=== PATIENT | female | born 1960 | race Caucasian/White ===

== ENCOUNTER 2018-10-11 12:52 | Inpatient (IN) | payer BC, OTHER ==
[~2018-10-11] VITALS: Ht 160 cm; Wt 78.9 kg
[~2018-10-11 12:52] MED LIST: ASA81 MG PO; FIORICET1 EA PO; METOPROLOL TART50 MG PO; OMEPRAZOLE20 MG PO; PANTOPRAZOLE SO40 MG PO; PROAIR HFA INH8.5 GM INH; TIZANIDINE HCL4 MG PO; TRICOR48 MG PO; Z.0.COZAAR50 MG PO; Z.0.GLUCOPHAGE500 MG PO; Z.0.HYDROCHLOROTH12. PO; Z.0.ZOLOFT25 MG PO; metoprolol
--- OUTSIDE RECORDS SUMMARY | 2018-10-11 12:56 | XMS REPORT | Continuity of Care Document ---
Author Author [facility] Interface Address Unknown Phone Unavailable Problems Problem Status Onset Date Classification Date Reported Comments Source Acute sinusitis 09/12/2016 Diagnosis 09/12/2016 [facility] Viral disease 09/12/2016 Diagnosis 09/12/2016 [facility] Coxsackie virus disease 08/24/2016 Diagnosis 09/12/2016 [facility] Coxsackie Virus Disease Problem 09/12/2016 [facility] Viral Disease Problem 09/12/2016 [facility] Acute Sinusitis Problem 09/12/2016 [facility] Medications Medication Details Route Status Patient Instructions Ordering Provider Order Date Source Fenofibrate 48 MG Oral Tablet fenofibrate nanocrystallized 48 mg tablet Active [facility] gabapentin 300 MG Oral Capsule gabapentin 300 mg capsule Active [facility] Hydrochlorothiazide 25 MG Oral Tablet hydrochlorothiazide 25 mg tablet Active [facility] Hydroxyzine Hydrochloride 25 MG Oral Tablet hydroxyzine HCl 25 mg tablet Active [facility] Losartan Potassium 50 MG Oral Tablet losartan 50 mg tablet Active [facility] Metformin hydrochloride 1000 MG Oral Tablet metformin 1,000 mg tablet Active [facility] Metoprolol Tartrate 50 MG Oral Tablet metoprolol tartrate 50 mg tablet Active [facility] Ondansetron 8 MG Disintegrating Oral Tablet ondansetron 8 mg disintegrating tablet Active [facility] Sertraline 50 MG Oral Tablet sertraline 50 mg tablet Active [facility] tizanidine 4 MG Oral Tablet tizanidine 4 mg tablet Active [facility] Triamcinolone Acetonide 0.001 MG/MG Topical Ointment triamcinolone acetonide 0.1 % topical ointment Active [facility] Amoxicillin 875 MG / Clavulanate 125 MG Oral Tablet [Augmentin] Augmentin 875 mg-125 mg tablet Take 1 tablet every 12 hours by oral route with meals for 10 days. Active [facility] benzonatate 200 MG Oral Capsule benzonatate 200 mg capsule Active [facility] Ciprofloxacin 3 MG/ML / Dexamethasone 1 MG/ML Otic Suspension [Ciprodex] Ciprodex 0.3 %-0.1 % ear drops,suspension Active [facility] Fluticasone propionate 0.05 MG/ACTUAT Metered Dose Nasal [place] fluticasone 50 mcg/actuation nasal spray,suspension Active [facility] Ondansetron 4 MG Oral Tablet ondansetron HCl 4 mg tablet Active [facility] benzonatate 100 MG Oral Capsule [Tessalon Perles] Tessalon Perles 100 mg capsule Take 1 capsule 3 times a day by oral route as needed for cough. Active [facility] Allergies, Adverse Reactions, Alerts Substance Category Reaction Severity Reaction type Status Date Reported Comments Source Egg Derived Allergy to substance 08/24/2016 [facility] Fish Derived Allergy to substance 08/24/2016 [facility] Soma Allergy to substance 08/24/2016 [facility] Sulfa (Sulfonamide Antibiotics) Allergy to substance 08/24/2016 [facility] Immunizations Immunization Date Given Site Status Last Updated Comments Source Results Order Name Results Value Reference Range Date Interpretation Comments Source Influenza A negative 09/12/2016 [facility] Influenza B negative 09/12/2016 [facility] RESULT negative 09/12/2016 [facility] SWAB LOCATION Left and Right tonsillar pillars 09/12/2016 [facility] Vital Signs Vital Sign Value Date Comments Source Diastolic (mm Hg) 82 09/12/2016 [facility] Height 63 09/12/2016 [facility] Systolic (mm Hg) 124 09/12/2016 [facility] Weight 174 09/12/2016 [facility] Diastolic (mm Hg) 80 08/24/2016 [facility] Height 63 08/24/2016 [facility] Systolic (mm Hg) 126 08/24/2016 [facility] Weight 174 08/24/2016 [facility] Encounters Location Location Details Encounter Type Encounter Number Reason For Visit Attending Provider ADM Date DC Date Status Source [place] [facility] - [id number] Noel: [address] [place] [address], Ph. [id number] Janice Brock 08/24/2016 [facility] [place] [facility] - [id number] Noel: [address] [place] [address], Ph. [id number] Janice Delmy 08/24/2016 [facility] [place] [facility] - [id number] Cira Agudelo, SOLUTION STRATEGIST: [address] [facility], [place] [address], Ph. [id number] Cira Agudelo 09/12/2016 [facility] Procedures Procedure Code Date Perfomer Comments Source Appendectomy [facility] Cholecystectomy [facility] Hysterectomy [facility] Tonsillectomy [facility]
--- OUTSIDE RECORDS SUMMARY | 2018-10-11 12:57 | XMS REPORT | Encounter Summary ---
Author Organization Unknown Address [address] [place] [address] Phone [phone] Reason for Visit Medical Complaint Instructions 1. Acute sinusitis Augmentin 875 mg-125 mg tablet Tessalon Perles 100 mg capsule sinusitis: care instructions 2. Viral disease rapid flu (A+B) viral infections: care instructions rapid strep group A, throat Discussion Note: None recorded. Plan of Care Patient Instructions Try warm salt water gargles, throat lozanges, soups ortea with honey and/or lemon juice to soothe the throat.Please drink plenty of fluids, rest, good hand washing, cover your mouth while coughing and sneezing. Take ibuprofen or tylenol every 6 hours as needed for fever and aches.Try flonase nasal spray, 2sprays to each nostril once a day for nasal congestion. Consider using a saline sinus wash or NetiPot for sinus cleansing.Please read all the side effects of the medications, if you develop any side effects immediately stop the medication and please contact your PCP/[facility] or [facility] or call 911. Follow up with PCP/UC/ER or seek care if symptomsget worseor no improvement in 3 to 4 days. Patient verbalizes understanding and agrees to the plan. Reminders Provider Appointments None recorded. Lab Rapid Flu (A+B) 09/12/2016 [facility] Rapid Strep Group a, Throat 09/12/2016 [facility] Referral None recorded. Procedures None recorded. Surgeries None recorded. Imaging None recorded. Medications Name Start Date Augmentin 875 mg-125 mg tablet Take 1 tablet every 12 hours by oral route with meals for 10 days. benzonatate 200 mg capsule Ciprodex 0.3 %-0.1 % ear drops,suspension fenofibrate nanocrystallized 48 mg tablet fluticasone 50 mcg/actuation nasal spray,suspension gabapentin 300 mg capsule hydrochlorothiazide 25 mg tablet hydroxyzine HCl 25 mg tablet losartan 50 mg tablet metformin 1,000 mg tablet metoprolol tartrate 50 mg tablet ondansetron 8 mg disintegrating tablet ondansetron HCl 4 mg tablet sertraline 50 mg tablet Tessalon Perles 100 mg capsule Take 1 capsule 3 times a day by oral route as needed for cough. tizanidine 4 mg tablet triamcinolone acetonide 0.1 % topical ointment Medications Administered None recorded. Vitals Height Weight BMI Blood Pressure 5 ft 3 in 174 lbs 30.8 124/82 Lab Results Date Name Result Description Value Range Status Rapid Flu (A+B) Influenza a negative Influenza B negative Rapid Strep Group a, Throat Result negative Swab Location Left and Right tonsillar pillars Allergies Name Reaction Severity Onset Egg Derived Fish Derived Soma Hives Sulfa (Sulfonamide Antibiotics) Hives Problems Name Status Onset Date Source Coxsackie Virus Disease Active Encounter Viral Disease Active Encounter Acute Sinusitis Active Encounter Procedures Date Name Performed by Appendectomy Information not available Cholecystectomy Information not available Hysterectomy Information not available Tonsillectomy Information not available Vaccine List None recorded. Social History Smoking Status Current Some Day Smoker Past Encounters 09/12/2016 Acute Sinusitis; Viral Disease Cira Agudelo, KIMBERLYN: [address] [place] [address], Ph. 08/24/2016 Coxsackie Virus Disease Janice Delmy, BIOLOGICAL SCIENCES INSTRUCTOR: [address] [place] [address], Ph. History of Present Illness Inwam-Rajwywstai-Jalkbcj Reported By: Patient HPI: Location: head/sinuses. Quality: sore throat, colored phlegm, nasal/sinus congestion, dry cough. Duration: 2 weeksdays. Severity: moderate. Onset/Timing: sudden. Context: no sick contacts, no foreign travel, non-smoker. Modifying factors: OTC medication. Associated Symptoms: no shortness of breath, no wheezing, no change in number of pillows needed to sleep at night, no sweats, no significant weight gain, no significant weight loss, no morning cough, no vomiting, no diarrhea, no rash, no nausea, green sputum, sore throat Notes: Pt also reports low grade fever, sore throat, chills and body aches x 2 days. Review of Systems Basic Reported By: Patient Constitutional: Constitutional: fever Eyes: Eyes: no eye complaints Ioan-Khbh-Ylzad-Throat: Ears: no ear complaints. Nose: nose/sinus problems. Mouth/Throat: no bleeding gums, no mouth complaints, no teeth problems, sore throat Cardiovascular: Cardiovascular: no chest pain, no shortness of breath, no known heart murmur Respiratory: Respiratory: no wheezing, no shortness of breath, cough Gastrointestinal: Gastrointestinal: no abdominal pain, no vomiting / diarrhea Genitourinary: Genitourinary: no urinary complaints, no discharge Musculoskeletal: Musculoskeletal: no muscle weakness, no arthralgias/joint pain, no back pain, muscle aches Skin: Skin: no abnormal / changing mole, no jaundice, no rashes Neurologic: Neurologic: no loss of consciousness, no weakness, no numbness, no seizures, no dizziness, headache Physical Exam Adult Basic, Adult Female Complete Reported By: Patient Constitutional: General Appearance: healthy-appearing, well-nourished, well-developed. Level of Distress: NAD. Ambulation: ambulating normally Psychiatric: Mental Status: active and alert. Orientation: to time, to place, to person Eyes: Lids and Conjunctivae: non-injected, no discharge, no pallor. Pupils: PERRLA. EOM: EOMI. Lens: clear. Sclerae: non-icteric Ggq-Rwxy-Wkxze-Throat: Ears: no lesions on external ear, no outer ear tenderness, EACs clear, TMs clear, middle ear fluid. Hearing: no hearing loss. Nose: no lesions on external nose, nares patent, no septal deviation, nasal passages clear, sinus tenderness, nasal discharge--purulent, post nasal drip; red swollen nasal mucosa. Lips, Teeth, and Gums: no mouth or lip ulcers. Oropharynx: moist mucous membranes, no exudates, erythema, tonsils absent Neck: Neck: supple. Lymph Nodes: no cervical LAD Lungs: Respiratory effort: no dyspnea, no tachypnea. Auscultation: breath sounds normal Cardiovascular: Heart Auscultation: RRR, no murmurs Neurologic: Gait and Station: normal gait Skin: Inspection and palpation: no rash
--- OUTSIDE RECORDS SUMMARY | 2018-10-11 12:57 | XMS REPORT | Encounter Summary ---
Author Organization Unknown Address [address] [place] [address] Phone [phone] Reason for Visit Medical Complaint; hand, mouth, feet rash x2 days Instructions 1. Coxsackie virus disease triamcinolone acetonide 0.1 % topical ointment hydroxyzine HCl 25 mg tablet Discussion Note: None recorded. Patient educational handouts: No information available. Plan of Care Patient Instructions Instruct pt that this is a virus may take 7-10 days to recover. Ok to take tynenol/ibuprofen for pain/fever. Increase fluid intake. Avoid contact with other members at home until rash and fever have resolve. If noted fever increase worsening or unable to swallow anything down, seek ER. Work note given for pt to RTC on 08/29/16 if afebrile and rash free. Reminders Provider Appointments None recorded. Lab None recorded. Referral None recorded. Procedures None recorded. Surgeries None recorded. Imaging None recorded. Medications Name Start Date fenofibrate nanocrystallized 48 mg tablet gabapentin 300 mg capsule hydrochlorothiazide 25 mg tablet hydroxyzine HCl 25 mg tablet Take 1 tablet 3 times a day by oral route as needed for itching. losartan 50 mg tablet metformin 1,000 mg tablet metoprolol tartrate 50 mg tablet ondansetron 8 mg disintegrating tablet sertraline 50 mg tablet tizanidine 4 mg tablet triamcinolone acetonide 0.1 % topical ointment APPLY A THIN LAYER TO THE AFFECTED AREA(S) BY TOPICAL ROUTE 2 TIMES PER DAY x 10 days Medications Administered None recorded. Vitals Height Weight BMI Blood Pressure 5 ft 3 in 174 lbs 30.8 126/80 Lab Results None recorded. Allergies Name Reaction Severity Onset Egg Derived Fish Derived Soma Sulfa (Sulfonamide Antibiotics) Problems Name Status Onset Date Source Coxsackie Virus Disease Active Encounter Procedures Date Name Performed by Appendectomy Information not available Cholecystectomy Information not available Hysterectomy Information not available Tonsillectomy Information not available Vaccine List None recorded. Social History Smoking Status Never Smoker Past Encounters 08/24/2016 Coxsackie Virus Disease Janice Brock, ACTIVE DIRECTORY ENGINEER: [address] [facility], [place] [address], Ph. History of Present Illness Jgtn-Wrmcank-Bbdwq-Skin Lesion-Bite 1 Reported By: Patient HPI: Location: hands, feet; mouth. Quality: multiple. Severity: worsening. Duration: has noted for <1 week. Onset/Timing: abrupt onset. Context: no new detergents or skin products, no one else with similar rash, no sting or bite. Aggravating factors: nothing makes it worse. Alleviating factors: nothing gives relief. Associated Symptoms: no fever, no cold symptoms, no nausea, no vomiting, no diarrhea, no urinary symptoms Review of Systems Basic Reported By: Patient Constitutional: Constitutional: no fever Eyes: Eyes: no eye complaints Rphp-Kwtf-Yyfrw-Throat: Ears: no ear complaints. Nose: no nose/sinus problems. Mouth/Throat: no sore throat, no bleeding gums, no mouth complaints, no teeth problems Cardiovascular: Cardiovascular: no chest pain, no shortness of breath, no known heart murmur Respiratory: Respiratory: no cough, no wheezing, no shortness of breath Gastrointestinal: Gastrointestinal: no abdominal pain, no vomiting / diarrhea Genitourinary: Genitourinary: no urinary complaints, no discharge Musculoskeletal: Musculoskeletal: no muscle aches, no muscle weakness, no arthralgias/joint pain, no back pain Skin: Skin: no abnormal / changing mole, no jaundice, rash Neurologic: Neurologic: no loss of consciousness, no weakness, no numbness, no seizures, no dizziness, no headaches Physical Exam Adult Basic, Adult Female Complete Constitutional: General Appearance: healthy-appearing, well-nourished, well-developed. Level of Distress: NAD. Ambulation: ambulating normally Psychiatric: Mental Status: active and alert. Orientation: to time, to place, to person Eyes: Lids and Conjunctivae: non-injected, no discharge, no pallor. Pupils: PERRLA. Corneas: grossly intact. EOM: EOMI. Lens: clear. Sclerae: non-icteric. Vision: acuity grossly intact Key-Fyyv-Yuvvp-Throat: Ears: no lesions on external ear, no outer ear tenderness, EACs clear, TMs clear. Hearing: no hearing loss. Nose: no lesions on external nose, nares patent, no septal deviation, nasal passages clear, no sinus tenderness, no nasal discharge. Lips, Teeth, and Gums: no mouth or lip ulcers, no bleeding gums, normal dentition. Oropharynx: ; ulcerated pink lesion to oropharynx Neck: Neck: supple, trachea midline, no masses, FROM. Lymph Nodes: no cervical LAD, no supraclavicular LAD. Thyroid: no enlargement, non-tender, no nodules Lungs: Respiratory effort: no dyspnea, no tachypnea, no use of accessory muscles, no intercostal retractions. Auscultation: breath sounds normal Cardiovascular: Heart Auscultation: RRR, no murmurs. Neck vessels: no carotid bruits Skin: Inspection and palpation: rash
[2018-10-11] MEDS ORDERED: SODIUM CHLORIDE 0.9% 1000ML 1,000 ML IV STA (13:18)
[2018-10-11 13:46] LABS: BASOPHILS % 0.4 % (0.0-1.0); EOSINOPHILS # (AUTO) 0.2 (0.0-0.4); EOSINOPHILS % 1.4 % (0.0-6.0); HEMOGLOBIN 14.3 g/dL (12.0-16.0); LYMPHOCYTES # (AUTO) 2.7 (1.0-3.2); LYMPHOCYTES % 23.7 % (18.0-39.1); MEAN CORPUSCULAR HEMOGLOBIN 29.5 pg (28-32); MEAN CORPUSCULAR HGB CONC 35.8 g/dL (31-35); MEAN CORPUSCULAR VOLUME 82.6 fL (81-99); MONOCYTES % 9.1 % (4.4-11.3); NEUTROPHILS # (AUTO) 7.3 (2.1-6.9); NEUTROPHILS % 64.7 % (38.7-80.0); PLATELET COUNT 512 x10e3/uL (140-360); RED BLOOD COUNT 4.84 x10e6/uL (3.6-5.1)
[2018-10-11 13:54] LABS: CLARITY,URINE SL CLOUDY (CLEAR); COLOR,URINE YELLOW (YELLOW); LEUKOCYTE ESTERASE ,URINE NEGATIVE (NEGATIVE)
[2018-10-11 13:55] LABS: BILIRUBIN,URINE 1+ (NEGATIVE); KETONES,URINE NEGATIVE (NEGATIVE); NITRITE,URINE NEGATIVE (NEGATIVE); PROTEIN,URINE DIPSTICK TRACE (NEGATIVE); URINE UROBILINOGEN 0.2 mg/dL (0.2 - 1)
[2018-10-11 14:06] LABS: ALANINE AMINOTRANSFERASE 76 IU/L (0-55); ALBUMIN 4.7 g/dL (3.5-5.0); ALBUMIN/GLOBULIN RATIO 1.3 (0.8-2.0); ALKALINE PHOSPHATASE 98 IU/L (40-150); AMYLASE 55 U/L (25-125); ANION GAP 17.6 mmol/L (8-16); BLOOD UREA NITROGEN 22 mg/dL (7-26); BUN/CREATININE RATIO 24 (6-25); CALCIUM 10.9 mg/dL (8.4-10.2); CARBON DIOXIDE 28 mmol/L (22-29); CHLORIDE 91 mmol/L (98-107); CREATININE, SERUM 0.93 mg/dL (0.57-1.11); EST GLOMERULAR FILTRATION RATE > 60 ML/MIN (60-); GLUCOSE 247 mg/dL (74-118); LIPASE 61 U/L (8-78); MAGNESIUM 1.9 MG/DL (1.3-2.1); SODIUM 134 mmol/L (136-145)
[2018-10-11 14:07] LABS: POTASSIUM 2.6 mmol/L (3.5-5.1)
[2018-10-11] MEDS ORDERED: POTASSIUM CHLORIDE 20 MEQ TAB CR PO ONE (14:08)
[2018-10-11 14:10] LABS: WBC,URINE (MAN) 0-5 /HPF (0-5)
[2018-10-11 14:11] LABS: AMORPHOUS SEDIMENT,URINE RARE (FEW); BACTERIA,URINE RARE /HPF; EPITHELIAL CELLS,URINE FEW /LPF; MUCUS,URINE RARE (RARE); RBC,URINE 0-5 /HPF (0-5)
[2018-10-11] MEDS ORDERED: POTASSIUM CHLORIDE 20MEQ/100ML 200 ML IV ONE (14:15)
[2018-10-11 14:19] LABS: B-TYPE NATRIURETIC PEPTIDE2 < 10.0 pg/mL (0-100)
--- NOTE | 2018-10-11 15:02 | Diagnostic Imaging Report ---
EXAM: XR CHEST 1 VIEW DATE: 10/11/2018 1:18 PM INDICATION: Fever COMPARISON: 12/11/2014, no report available FINDINGS: Lines and Tubes: None Heart and Mediastinum: No acute cardiomediastinal findings. Lungs and Pleura: No significant pleural effusion, pneumothorax, or focal consolidation. Bones and Soft Tissues: No acute findings. IMPRESSION: 1. No acute cardiopulmonary findings. Signed by: Dr. Jordan Medellin MD on 10/11/2018 2:58 PM
[2018-10-11] MEDS ORDERED: MORPHINE SULFATE 2 MG/ML SYR IV ONE ×2 (15:58→22:00)
[2018-10-11] MEDS ORDERED: ONDANSETRON HCL INJ 2 MG/ML VIAL IV ONE ×2 (15:58→22:00)
[2018-10-11] MEDS ORDERED: SODIUM CHLORIDE 0.9% 1000ML 1,000 ML ONE (16:07)
[2018-10-11] MEDS ORDERED: SODIUM CHLORIDE 0.9% 1000ML 1,000 ML IV SCH (16:15)
[2018-10-11] MEDS ORDERED: PIPER-TAZ 3.375 GM 50 ML IV ONE ×2 (16:15→22:00)
--- OUTSIDE RECORDS SUMMARY | 2018-10-11 17:49 | XMS REPORT ---
Author [facility] Address Unknown Phone Unavailable Care Team Providers Care Statistics Intern Name Role Phone Afia LOPEZ Unavailable Unavailable Problems This patient has no known problems. Allergies, Adverse Reactions, Alerts This patient has no known allergies or adverse reactions. Medications This patient has no known medications. Results Test Description Test Time Test Comments Text Results Atomic Results Result Comments CHEST SINGLE (NOT PORTABLE) 2018-10-11 14:58:00 [place] [address] Patient Name: CHARLEEN PADILLA MR #: [id number] : 1960 Age/Sex: 57/F Req #: [id number] Adm Physician: Ordered by: ISAAC SANCHEZ PRODUCT HANDLER Report #: [id number] Location: ER Room/Bed: Procedure: [id number] DX/CHEST SINGLE (NOT PORTABLE) Exam Date: Exam Time: REPORT STATUS: Signed EXAM: XR CHEST 1 VIEW DATE: 10/11/2018 1:18 PM INDICATION: Fever COMPARISON: 12/11/2014, no report available FINDINGS: Lines and Tubes: None Heart and Mediastinum: No acute cardiomediastinal findings. Lungs and Pleura: No significant pleural effusion, pneumothorax, or focal consolidation. Bones and Soft Tissues: No acute findings. IMPRESSION: 1. No acute cardiopulmonary findings. Signed by: Dr. Jordan Medellin MD on 10/11/2018 2:58 PM Dictated By: JORDAN MEDELLIN MD [id number] Transcribed By: DEVAUGHN on 10/11/18 145 COPY TO: ISAAC SANCHEZ NP
[2018-10-11] MEDS: ALBUTEROL/IPRATROPIUM 3 ML NEB NEB SCH ×2 (19:00→21:45)
--- NOTE | 2018-10-11 21:03 | Diagnostic Imaging Report ---
EXAM: CT Abdomen and Pelvis WITH contrast INDICATION: ^abdominal pain ^[id number] ^4 ^Y COMPARISON: Chest x-ray dated 10/11/2018 TECHNIQUE: Abdomen and pelvis were scanned utilizing a multidetector helical scanner from the lung base to the pubic symphysis after administration of IV contrast. Coronal and sagittal reformations were obtained. Dose modulation, iterative reconstruction, and/or weight based adjustment of the mA/kV was utilized to reduce the radiation dose to as low as reasonably achievable. Routine protocol was performed. Scan was performed when during portal venous phase. IV CONTRAST: 100 mL of Isovue-370 ORAL CONTRAST: Water COMPLICATIONS: None RADIATION DOSE: Total DLP: 485.78 mGy*cm Estimated effective dose: (DLP x 0.015 x size factor) mSv CTDIvol has been reviewed. It is below the limits set by the Radiation Protocol Committee (RPC). FINDINGS: LINES and TUBES: None. LOWER THORAX: Multiple bilateral nodules versus patchy opacities, measuring up to 1.8 cm. HEPATOBILIARY: Hepatomegaly. Diffuse hepatic steatosis. No focal hepatic lesions. No biliary ductal dilation. GALLBLADDER: Surgically absent. SPLEEN: No splenomegaly. PANCREAS: No focal masses or ductal dilatation. ADRENALS: No left adrenal nodule. Focal thickening of the right adrenal base versus nodules, measuring 1.3 cm and 0.9 cm. KIDNEYS/URETERS: Kidneys enhance symmetrically. No hydronephrosis. No cystic or solid mass lesions. No stones. GI TRACT: No abnormal distention or evidence of bowel obstruction. Questionable distal rectal wall thickening versus underdistention (series 2, image 79). Few scattered colonic diverticula without evidence of diverticulitis. Appendix is not visualized. PELVIC ORGANS/BLADDER: Hysterectomy. Bladder is unremarkable. LYMPH NODES: No lymphadenopathy. VESSELS: Unremarkable. PERITONEUM / RETROPERITONEUM: No free air or fluid. BONES: Mild scoliosis and degenerative changes of lumbar spine, most notable at L4-L5. SOFT TISSUES: Unremarkable. IMPRESSION: 1. No acute inflammatory process in the abdomen/pelvis. 2. Multiple bilateral lung base nodular densities versus patchy opacities. Differentials include multifocal pneumonia, atypical infectious process, or metastatic disease. Recommend correlation with dedicated chest CT. 3. Questionable distal rectal wall thickening versus underdistention. If clinically indicated, this can be further evaluated with endoscopic examination. 4. Small indeterminate right adrenal nodules. 5. Enlarged steatotic liver. Signed by: Dr. Akbar Mccauley MD on 10/11/2018 8:59 PM
[2018-10-11] MEDS ORDERED: LEVOFLOXACIN 750MG/D5W 150ML 150 ML IV SCH (21:45)
[2018-10-11] MEDS: SODIUM CHLORIDE 0.9% 1000ML 1,000 ML IV SCH (21:46)
[2018-10-11] MEDS: METRONIDAZOLE 500MG/NS 100ML 100 ML IV SCH (22:23)
[2018-10-11] MEDS ORDERED: SODIUM CHLORIDE 0.9% 50ML 50 ML ONE (22:41)
[2018-10-11] MEDS ORDERED: IOPAMIDOL 370 MG/ML 200 ML INFUS..BTL INJ ONE (22:41)
[2018-10-11] MEDS ORDERED: SINGULAIR10 MG PO (22:45)
[2018-10-11] MEDS ORDERED: GABAPENTIN300 MG PO (22:45)
[2018-10-11] MEDS ORDERED: MELOXICAM7.5 MG PO (22:45)
[2018-10-11] MEDS ORDERED: GLIPIZIDE5 MG PO (22:45)
[2018-10-11] MEDS ORDERED: ZOFRAN4 MG PO (22:45)
[2018-10-11] MEDS ORDERED: DICYCLOMINE HCL10 MG PO (22:45)
[2018-10-11] MEDS ORDERED: FLUTICASONE PRO16 GM INH (22:46)
[2018-10-12] MEDS: SODIUM CHLORIDE 0.9% 1000ML 1,000 ML IV SCH ×4 (01:06→23:46)
[2018-10-12] MEDS: ACETAMINOPHEN 325 MG TAB PO PRN ×2 (02:50→23:46)
[2018-10-12] MEDS: ALBUTEROL/IPRATROPIUM 3 ML NEB NEB SCH ×6 (03:12→23:10)
[2018-10-12] MEDS ORDERED: MORPHINE SULFATE 2 MG/ML SYR IV PRN (03:15)
[2018-10-12 04:00] VITALS: BP 127/74
[2018-10-12] MEDS: ONDANSETRON HCL INJ 2 MG/ML VIAL IV PRN (04:00)
[2018-10-12] MEDS: METRONIDAZOLE 500MG/NS 100ML 100 ML IV SCH ×3 (05:06→21:46)
[2018-10-12 06:57] LABS: ALANINE AMINOTRANSFERASE 51 IU/L (0-55); ALBUMIN 3.5 g/dL (3.5-5.0); ALBUMIN/GLOBULIN RATIO 1.3 (0.8-2.0); ALKALINE PHOSPHATASE 74 IU/L (40-150); ANION GAP 13.7 mmol/L (8-16); BLOOD UREA NITROGEN 15 mg/dL (7-26); BUN/CREATININE RATIO 20 (6-25); CALCIUM 9.3 mg/dL (8.4-10.2); CARBON DIOXIDE 27 mmol/L (22-29); CHLORIDE 99 mmol/L (98-107); CREATINE KINASE 62 IU/L (29-168); CREATININE, SERUM 0.75 mg/dL (0.57-1.11); EST GLOMERULAR FILTRATION RATE > 60 ML/MIN (60-); GLUCOSE 172 mg/dL (74-118); SODIUM 137 mmol/L (136-145)
[2018-10-12 06:59] LABS: POTASSIUM 2.7 mmol/L (3.5-5.1)
[2018-10-12 07:09] LABS: OCCULT BLOOD STOOL NEGATIVE (NEGATIVE)
[2018-10-12] MEDS ORDERED: KCL 20MEQ/.9 SOD CHL 1,000 ML IV ONE (07:15)
[2018-10-12 07:26] LABS: BASOPHILS % 0.4 % (0.0-1.0); EOSINOPHILS # (AUTO) 0.2 (0.0-0.4); EOSINOPHILS % 2.3 % (0.0-6.0); HEMATOCRIT 31.1 % (34.2-44.1); HEMOGLOBIN 10.8 g/dL (12.0-16.0); LYMPHOCYTES % 35.5 % (18.0-39.1); MEAN CORPUSCULAR HEMOGLOBIN 29.1 pg (28-32); MEAN CORPUSCULAR HGB CONC 34.7 g/dL (31-35); MEAN CORPUSCULAR VOLUME 83.8 fL (81-99); MONOCYTES # (AUTO) 0.9 (0.2-0.8); MONOCYTES % 10.9 % (4.4-11.3); NEUTROPHILS # (AUTO) 4.2 (2.1-6.9); PLATELET COUNT 373 x10e3/uL (140-360); RED BLOOD COUNT 3.71 x10e6/uL (3.6-5.1); RED CELL DISTRIBUTION WIDTH 12.3 % (11.7-14.4)
[2018-10-12] MEDS ORDERED: POTASSIUM CHLORIDE 20 MEQ TAB CR PO NR (07:30)
[2018-10-12 08:00] VITALS: BP 115/87
[2018-10-12 10:31] LABS: C DIFFICILE TOXIN A&B AMP PROB **POSITIVE** (NEGATIVE)
--- NOTE | 2018-10-12 11:09 | History and Physical ---
HISTORY OF PRESENT ILLNESS: Ms. Mcgowan is a 57-year-old female with history of diabetes, hypertension, IBS, rheumatic fever. She came to the emergency room complaining of being sick for 11 days with diarrhea, nausea, vomiting and cough. She was treated several times by her PCP with p.o. antibiotics. She did not improve, so she decided to come to the emergency room. PAST MEDICAL HISTORY: She has hypertension, diabetes, IBS. SOCIAL HISTORY: She occasionally smokes. She does not drink. ALLERGIES: SHE IS ALLERGIC TO SULFA. SURGICAL HISTORY: She had cholecystectomy, hysterectomy, tonsillectomy, appendectomy. PHYSICAL EXAMINATION GENERAL: Today, she is awake and alert. VITAL SIGNS: Temperature 98.2. BP 127/74. HEART: Regular rate. LUNGS: Clear to auscultation. ABDOMEN: Soft. LABS: On the blood work, potassium is 2.7, creatinine 0.75, glucose 172. White count 8.43, hemoglobin 10.8, hematocrit 31.1. She had a chest x-ray done that shows no acute findings. Had an abdominal and pelvic CT that shows no acute inflammatory process in the abdomen and pelvis. Multiple bilateral lung base nodular densities including pneumonia, atypical infection or metastatic disease. She is going to need a chest CT. ASSESSMENT AND PLAN 1. Abdominal pain, vomiting and diarrhea. 2. Cough. 3. Abnormal x-ray with nodular densities. Rule out infection. Rule out metastatic disease. The plan at the present time is to admit the patient to the hospital and get a chest CT. We are going to get an infectious disease consult and a pulmonary consult. All this was discussed with the patient, and all questions were answered to satisfaction. Job#: [id number]
[2018-10-12 11:36] VITALS: BP 119/73
--- NOTE | 2018-10-12 14:11 | Diagnostic Imaging Report ---
EXAMINATION: CT scan of the chest without contrast. TECHNIQUE: Spiral CT images of the chest were performed from the lung apices to the level of the adrenal glands. No intravenous contrast was administered per referring physician request. Coronal and sagittal reformatted images were obtained. COMPARISON: CT abdomen and pelvis 10/11/2018 CLINICAL HISTORY:Lung nodules DISCUSSION: ABSENCE OF INTRAVENOUS CONTRAST DECREASES SENSITIVITY FOR DETECTION OF FOCAL LESIONS AND VASCULAR PATHOLOGY. LINES/TUBES: None. LUNGS AND AIRWAYS: Multiple patchy groundglass opacities and consolidations predominantly in a peribronchial distribution in the upper lobes for example on series 3 image 35 and image 40, and in the lower lobes for example on series 3 image 67 and 74. Some of the opacities have a more nodular configuration, measuring up to 1.1 cm and 1.4 cm in the right lower lobe and a 1.1 cm in the left lower lobe. Several subcentimeter groundglass and solid nodules are also noted, for example in the periphery of the left lung seen on series 3 image 40, and in the right lower lobe seen on series 3 image 59 and 60. Trachea, mainstem bronchi, and lobar bronchi are patent. No significant bronchiectasis. PLEURA: No pneumothorax or pleural effusions. HEART AND MEDIASTINUM: Visualized portions of the thyroid gland are unremarkable. Atherosclerotic calcification of the innominate artery. No ectasia or aneurysmal dilatation of the thoracic aorta. Pulmonary outflow tract is of normal caliber. No pericardial effusion. No axillary, hilar, or mediastinal lymphadenopathy. LYMPH NODES: As above ABDOMEN: Visualized portions of the liver, spleen, and adrenal glands are unremarkable. BONES AND SOFT TISSUES: No osseous destructive lesions. IMPRESSION: Multifocal central predominant groundglass nodules and peribronchial consolidations, most likely direct marketing representative of atypical infection, to include mycobacterial and fungal etiologies, though the differential diagnosis includes vasculitis/collagen vascular disease in the appropriate clinical setting. Short-term follow-up CT scan of the chest (1-2 months) after treatment is suggested to document resolution. Signed by: Dr. William Vitale M.D. on 10/12/2018 2:07 PM
[2018-10-12 16:30] VITALS: BP 127/75
[2018-10-12 16:43] LABS: HIV 1&2 AB SCREEN NON-REACTIVE (NONREACTIVE)
[2018-10-12] MEDS: VANCOMYCIN 250MG/5ML ORAL SOLN PO SCH ×2 (17:18→23:45)
--- NOTE | 2018-10-12 18:05 | Consultation ---
DATE OF CONSULTATION: INFECTIOUS DISEASE CONSULTATION REASON FOR CONSULTATION: Sepsis, C. diff colitis. HISTORY OF PRESENT ILLNESS: This is a patient who is a very pleasant 57-year-old female who has history of diabetes mellitus, hypertension, irritable bowel syndrome, rheumatic fever. The patient comes into the emergency room because she has been sick for the last 2 weeks or so. The patient started to have what seems like a flu-like illness, not feeling well, congested. Apparently started to have some nausea, vomiting and cough. She went to see a physician who gave her oral antibiotic, but not any better. Came to the emergency room because she was not feeling well. She was also having diarrhea. Patient is being admitted. Her C. diff is coming back positive; so, Infectious Disease was consulted. PAST MEDICAL HISTORY: Hypertension, diabetes mellitus, irritable bowel syndrome. PAST SURGICAL HISTORY: Hysterectomy, cholecystectomy, tonsillectomy, appendectomy. ALLERGIES: SULFA. SOCIAL HISTORY: There is no smoking, drug abuse, alcohol abuse. She does have 2 cats and 2 dogs in the house. LABORATORY DATA: On admission white count was 11.27, hemoglobin 14, hematocrit 40, her platelet 512. Sodium 137, potassium 2.7 on admission. Glucose of 247. Lactic acid 33.9. AST 65, ALT 76. Her C. diff toxin was positive. Her chest CT showed multifocal granulized nodules most likely representing atypical infection. She had CT abdomen and pelvis, showed also lung base densities. MEDICATION: The patient is currently on metronidazole and levofloxacin. PHYSICAL EXAMINATION: GENERAL: She is currently alert, oriented, does not seem to be in acute distress. VITALS: Stable. Currently afebrile. HEENT: She does not appear icteric. Normocephalic. NECK: Supple. No JVD. No lymphadenopathy. No thyromegaly. CHEST: Clear bilaterally. HEART: S1, S2. No S3, no S4, no murmur. ABDOMEN: Soft. Bowel sounds present. No tenderness. EXTREMITIES: No edema. SKIN: No rash. IMPRESSION: 1. Atypical pneumonia. 2. Clostridium difficile colitis. Agree with Levaquin and oral Flagyl. Will add oral vancomycin. Will check for HIV, urine legionella antigen, mycoplasma and Chlamydia serology. Agree with IV fluid. Will follow with you. Thank you for asking me to see this patient. Job#: [id number] EV
[2018-10-12 23:01] VITALS: BP 144/69
[2018-10-12 23:06] VITALS: BP 144/69
[2018-10-13] VITALS (8 sets, daily range): BP systolic 125–150; BP diastolic 61–72
[2018-10-13] MEDS: LEVOFLOXACIN 750MG/D5W 150ML 150 ML IV SCH (00:25)
[2018-10-13] MEDS: ALBUTEROL/IPRATROPIUM 3 ML NEB NEB SCH ×5 (03:02→19:05)
[2018-10-13] MEDS: METRONIDAZOLE 500MG/NS 100ML 100 ML IV SCH ×3 (06:10→21:29)
[2018-10-13] MEDS: VANCOMYCIN 250MG/5ML ORAL SOLN PO SCH ×3 (06:11→17:14)
[2018-10-13] MEDS: SODIUM CHLORIDE 0.9% 1000ML 1,000 ML IV SCH ×2 (09:06→17:14)
--- NOTE | 2018-10-13 09:55 | Progress Note ---
DATE: October 13, 2018 Ms. Mcgowan is a 57-year-old female with history of diabetes, hypertension, IBS, rheumatic fever. She came to the emergency room complaining 11 days of diarrhea, nausea, vomiting and cough. Stools came back positive for C. diff. Chest x-ray and chest CT showed multiple nodules concerning for atypical infection. Infectious disease and pulmonary were consulted. PHYSICAL EXAMINATION GENERAL: Today, she is awake and alert. She states she is feeling better. VITAL SIGNS: Temperature is 97. Blood pressure is 145/71. HEART: Regular rate. LUNGS: Poor inspiratory effort. ABDOMEN: Soft. LABS: On the blood work from yesterday, potassium is 2.7, creatinine 0.76, glucose 172. White count 8.43, hemoglobin 10.8, hematocrit 31.1. Chest CT done yesterday shows multifocal central ground-glass nodules, peribronchial consolidations representing probably atypical infection to include mycobacterial and fungal etiologies. Collagen vascular disease could not be ruled out. ASSESSMENT AND PLAN 1. Clostridium difficile colitis. 2. Atypical pneumonia. 3. Abdominal pain. 4. Hypertension. 5. Diabetes. The plan at the present time is to continue IV antibiotics, ADA diet, sliding scale with insulin. Continue blood pressure medications from home. We are waiting for results on further serology testing like C. trachomatis and psittaci, HIV, mycoplasma. All those things are pending. All this was discussed with the patient, and questions were answered to satisfaction. Job#: [id number]
[2018-10-13 10:05] LABS: BLOOD UREA NITROGEN 5 mg/dL (7-26); BUN/CREATININE RATIO 7 (6-25); CARBON DIOXIDE 24 mmol/L (22-29); CHLORIDE 100 mmol/L (98-107); CREATININE, SERUM 0.75 mg/dL (0.57-1.11); EST GLOMERULAR FILTRATION RATE > 60 ML/MIN (60-); GLUCOSE 299 mg/dL (74-118); SODIUM 137 mmol/L (136-145)
[2018-10-13] MEDS ORDERED: POTASSIUM CHLORIDE 20 MEQ TAB CR PO ONE ×2 (12:10→14:00)
--- NOTE | 2018-10-13 17:56 | Consultation ---
DATE OF CONSULTATION: PULMONARY CONSULTATION REASON FOR CONSULT: Lung nodules. CHIEF COMPLAINT: Cough, shortness of breath, nausea and vomiting. HISTORY OF PRESENT ILLNESS: Ms. Mcgowan is a 58-year-old female. She has a history of diabetes, high blood pressure, irritable bowel syndrome. She came into the emergency room. She reports that for the last 2 weeks she has been extremely sick with nausea, vomiting, fever, lethargy. She has received Tamiflu by her primary care physician with no benefit, and she became increasingly weak, lethargic and was throwing up with coughing; so, she came to the emergency room. She denies any complaints of chest pain. She was having nausea, vomiting and diarrhea. REVIEW OF SYSTEMS: GENERAL: She was having fever and chills. HEAD: Denies any head trauma. ENT: Denies any earache. CVS: Denies any chest pain. RESPIRATORY: No shortness of breath. GI: Nausea and vomiting. REST OF THE REVIEW OF SYSTEMS: Negative except as in history of present illness. PAST MEDICAL HISTORY: Hypertension, diabetes, irritable bowel syndrome. PAST SURGICAL HISTORY: Hysterectomy, cholecystectomy, tonsillectomy. FAMILY AND SOCIAL HISTORY: She occasionally smokes, does not drink. Works as a mailroom associate. PHYSICAL EXAMINATION: VITALS: Temperature 97.4, pulse of 86, blood pressure 146/70, respiratory rate of 18. HEENT: Head atraumatic, normocephalic. NECK: Supple. CHEST: Clear to auscultation bilaterally. No wheezing. HEART: S1 and S2 audible. ABDOMEN: Soft, nontender. EXTREMITIES: No pedal edema. NEUROLOGIC: Awake, alert. No focal neurologic deficit. LABORATORY DATA: White count of 8000. Hemoglobin 10.8. Platelets 373. CHEMISTRY: Sodium 137, potassium 3.0, chloride 100, BUN 5, creatinine 0.75. COMPUTED TOMOGRAPHY OF THE CHEST: I have reviewed the images in detail. Patient has small nodules which appear that either she has aspirated or it is small mucoid impactions in small airways versus pneumonia and bronchitis. ASSESSMENT AND PLAN: Ms. Mcgowan is a 58-year-old female with a history of irritable bowel syndrome, hypertension, diabetes, presented with cough, nausea, vomiting and lethargy. Looks like a viral syndrome. Patient is being treated with IV antibiotics. CT chest shows interesting incidental finding of small nodules. CURRENT PROBLEMS: 1. Lung nodules which are less than 1 cm. 2. Clostridium difficile colitis. 3. Hypertension. 4. Diabetes. PLAN: The findings in the lung are showing small nodules. These are subcentimeter nodules and do not need biopsy at this point, and it appears that it is probably due to the viral infection. There are 1 or 2 nodular configurations which are more than 1 cm; however, they do not appear to be typical lung nodules. I would recommend a 3-month followup CAT scan to document the resolution of these nodules. In the meantime, I will recommend continuing the treatment for pneumonia and C. diff colitis. Thank you for this consult. Job#: [id number] EV
[2018-10-13] MEDS: ACETAMINOPHEN 325 MG TAB PO PRN (21:31)
[2018-10-14] VITALS: BP 150/72
[2018-10-14] MEDS: VANCOMYCIN 250MG/5ML ORAL SOLN PO SCH ×4 (00:02→19:26)
[2018-10-14] MEDS: LEVOFLOXACIN 750MG/D5W 150ML 150 ML IV SCH (00:02)
[2018-10-14] MEDS: ALBUTEROL/IPRATROPIUM 3 ML NEB NEB SCH ×7 (00:06→23:00)
[2018-10-14 04:00] VITALS: BP 177/85
[2018-10-14] MEDS: ONDANSETRON HCL INJ 2 MG/ML VIAL IV PRN (04:58)
[2018-10-14 05:21] LABS: ANION GAP 15.1 mmol/L (8-16); BLOOD UREA NITROGEN < 5 mg/dL (7-26); CALCIUM 9.5 mg/dL (8.4-10.2); CARBON DIOXIDE 24 mmol/L (22-29); CHLORIDE 104 mmol/L (98-107); CREATININE, SERUM 0.64 mg/dL (0.57-1.11); EST GLOMERULAR FILTRATION RATE > 60 ML/MIN (60-); GLUCOSE 219 mg/dL (74-118); POTASSIUM 3.1 mmol/L (3.5-5.1); SODIUM 140 mmol/L (136-145)
[2018-10-14 05:22] LABS: BUN/CREATININE RATIO 8 (6-25)
[2018-10-14] MEDS: METRONIDAZOLE 500MG/NS 100ML 100 ML IV SCH ×3 (06:24→21:07)
[2018-10-14] MEDS: SODIUM CHLORIDE 0.9% 1000ML 1,000 ML IV SCH ×3 (06:24→17:37)
[2018-10-14 07:55] VITALS: BP 147/76
[2018-10-14] MEDS ORDERED: POTASSIUM CHLORIDE 20 MEQ TAB CR PO NR (10:00)
--- NOTE | 2018-10-14 10:16 | Progress Note ---
DATE: October 14, 2018 Ms. Mcgowan is a 57-year-old female with history of diabetes, hypertension, IBS. She came to the emergency room complaining of 11 days of diarrhea, nausea, vomiting and cough. She was found to be C. diff positive. CT of the chest showed multiple nodules probably secondary to atypical infection. She is getting 3 IV antibiotics. PHYSICAL EXAMINATION GENERAL: Today, she is awake and alert. She is feeling a little better. VITAL SIGNS: Temperature is 98.4. Blood pressure is 147/76. HEART: Regular rate. LUNGS: Clear to auscultation. ABDOMEN: Soft. LABS: On the blood work, white count 8.43, hemoglobin 10.8, potassium 3.1 today, glucose 219. Serology still pending. C. diff positive. HIV negative. The other serology is pending. Cultures so far have been negative. ASSESSMENT AND PLAN 1. Clostridium difficile colitis. 2. Atypical pneumonia. 3. Abdominal pain, resolved. 4. Hypertension. 5. Diabetes, type 2. The plan at the present time is to continue IV antibiotics, ADA diet, sliding scale with insulin. We are going to replace potassium and monitor in the morning. All of this was discussed with the patient, and all questions were answered to satisfaction. Job#: [id number]
[2018-10-14 11:41] VITALS: BP 143/73
[2018-10-14] MEDS: ACETAMINOPHEN 325 MG TAB PO PRN ×2 (13:53→21:15)
[2018-10-14 16:03] VITALS: BP 146/71
[2018-10-14] MEDS ORDERED: POTASSIUM CHLORIDE 20 MEQ TAB CR PO SCH (17:00)
[2018-10-14] MEDS ORDERED: POTASSIUM CHLORIDE 20 MEQ TAB CR PO ONE ×3 (19:30→21:30)
[2018-10-14 20:00] VITALS: BP 152/79
[2018-10-15] VITALS (7 sets, daily range): BP systolic 143–176; BP diastolic 70–90
[2018-10-15] MEDS: LEVOFLOXACIN 750MG/D5W 150ML 150 ML IV SCH
[2018-10-15] MEDS: ALBUTEROL/IPRATROPIUM 3 ML NEB NEB SCH ×4 (03:00→14:52)
[2018-10-15] MEDS: SODIUM CHLORIDE 0.9% 1000ML 1,000 ML IV SCH ×3 (04:35→17:26)
[2018-10-15 05:19] LABS: ANION GAP 13.3 mmol/L (8-16); BLOOD UREA NITROGEN < 5 mg/dL (7-26); CARBON DIOXIDE 23 mmol/L (22-29); CHLORIDE 108 mmol/L (98-107); CREATININE, SERUM 0.62 mg/dL (0.57-1.11); EST GLOMERULAR FILTRATION RATE > 60 ML/MIN (60-); GLUCOSE 202 mg/dL (74-118); POTASSIUM 4.3 mmol/L (3.5-5.1); SODIUM 140 mmol/L (136-145)
[2018-10-15] MEDS: METRONIDAZOLE 500MG/NS 100ML 100 ML IV SCH ×2 (05:33→14:56)
[2018-10-15] MEDS: VANCOMYCIN 250MG/5ML ORAL SOLN PO SCH ×4 (05:33→17:54)
[2018-10-15 05:44] LABS: BUN/CREATININE RATIO 8 (6-25)
--- NOTE | 2018-10-15 09:13 | Progress Note ---
DATE: October 15, 2018 Ms. Mcgowan is a 57-year-old female with history of diabetes and hypertension. She came to the emergency room with nausea, vomiting, diarrhea and cough for 11 days. She was C. diff positive. CT of the chest showed multiple nodules probably secondary to some type of atypical infection. She is on IV antibiotics, and apparently she is going to need antibiotics for 8 weeks. PHYSICAL EXAMINATION GENERAL: She is awake and alert. VITAL SIGNS: Temperature is 96.5. Blood pressure is 143/70. HEART: Regular rate. LUNGS: Clear to auscultation. ABDOMEN: Soft. LABS: On the blood work, potassium is 4.3, creatinine 0.62, glucose 202. Serology is pending. C. diff was positive. ASSESSMENT AND PLAN 1. Clostridium difficile colitis. 2. Atypical pneumonia. 3. Abdominal pain. 4. Hypertension. 5. Diabetes, type 2. The plan at the present time is to continue ADA diet, sliding scale with insulin, continue IV antibiotics. We are going to discuss with Dr. Fitch the duration of the IV antibiotics and see if the patient will qualify for LTAC versus home with IV antibiotics. All of this was discussed with the patient, and all questions were answered to satisfaction. Job#: [id number]
== END 2018-10-15 20:13 | disposition home or self-care (01) | DRG 371 ==
LOC: ER 12:52 → ERHOLD 17:47 → MED/SURG2 10-12 22:15
PROVIDERS: ADMIT Internal Medicine; ATTEND Internal Medicine
DX: A04.72 Enterocolitis due to Clostridium difficile, not specified as recurrent (principal); J18.9 Pneumonia, unspecified organism; R11.2 Nausea with vomiting, unspecified; I10 Essential (primary) hypertension; E11.9 Type 2 diabetes mellitus without complications; K58.9 Irritable bowel syndrome, unspecified; R91.8 Other nonspecific abnormal finding of lung field; Z79.84 Long term (current) use of oral hypoglycemic drugs; Z88.2 Allergy status to sulfonamides; Z88.8 Allergy status to other drugs, medicaments and biological substances; Z91.012 Allergy to eggs; R53.81 Other malaise
CPT/HCPCS: 36415; 71045; 71250; 74177; 80048; 80053; 81001; 82150; 82270; 82550; 82553; 83605; 83690; 83735; 83880; 84484; 85025; 86332; 86631; 86738; 87040; 87086; 87390; 87449; 87493; 93005; 94640; 99285; G0433; G0435; J2270; J2405; J2543; J3480; J7030; Q9967

== ENCOUNTER 2020-08-06 17:11 | Emergency (ER) | payer OTHER ==
[~2020-08-06] VITALS: Ht 160 cm; Wt 78.9 kg
[~2020-08-06 17:11] MED LIST changes: +DICYCLOMINE HCL10 MG PO; +FLUTICASONE PRO16 GM INH; +GABAPENTIN300 MG PO; +GLIPIZIDE5 MG PO; +MELOXICAM7.5 MG PO; +SINGULAIR10 MG PO; +ZOFRAN4 MG PO
[2020-08-06] MEDS ORDERED: HYDRALAZINE HCL 20 MG/ML VIAL IV STA (17:39)
[2020-08-06] MEDS ORDERED: SODIUM CHLORIDE 0.9% 1000ML 1,000 ML IV STA (17:39)
--- NOTE | 2020-08-06 18:02 | NUR ---
Pt was ambulatory steady gait without difficulty, but when called to room, pt shuffling and slow. Wheelchair brought to pt, however...pt grabbed male bookkeeper receptionist and ask him to let her hold on to his arm to room. Pt declined wheelchair strongly. Pt behavior in triage abrupt and off. Pt states, "[facility] he's really good." Explained to pt we did not have anyone here with that ethniticity. She then said, "well, i guess the girls can do it."
[2020-08-06 18:11] LABS: BASOPHILS # (AUTO) 0.1 (0.0-0.1); BASOPHILS % 0.5 % (0.0-1.0); EOSINOPHILS # (AUTO) 0.3 (0.0-0.4); EOSINOPHILS % 2.2 % (0.0-6.0); HEMATOCRIT 39.7 % (34.2-44.1); LYMPHOCYTES # (AUTO) 3.4 (1.0-3.2); LYMPHOCYTES % 29.5 % (18.0-39.1); MEAN CORPUSCULAR HGB CONC 32.7 g/dL (31-35); MEAN CORPUSCULAR VOLUME 85.4 fL (81-99); MONOCYTES % 8.6 % (4.4-11.3); NEUTROPHILS # (AUTO) 6.8 (2.1-6.9); NEUTROPHILS % 58.8 % (38.7-80.0); PLATELET COUNT 370 x10e3/uL (140-360); RED BLOOD COUNT 4.65 x10e6/uL (3.6-5.1); RED CELL DISTRIBUTION WIDTH 12.8 % (11.7-14.4)
[2020-08-06 18:17] LABS: INR 0.9; PROTHROMBIN TIME 12.6 seconds (11.9-14.5)
[2020-08-06 18:18] LABS: PARTIAL THROMBOPLASTIN TIME 30.5 seconds (23.8-35.5)
[2020-08-06 18:24] LABS: CLARITY,URINE CLEAR (CLEAR); COLOR,URINE YELLOW (YELLOW); KETONES,URINE NEGATIVE (NEGATIVE); LEUKOCYTE ESTERASE ,URINE NEGATIVE (NEGATIVE); NITRITE,URINE NEGATIVE (NEGATIVE); PROTEIN,URINE DIPSTICK NEGATIVE (NEGATIVE)
[2020-08-06 18:25] LABS: BILIRUBIN,URINE NEGATIVE (NEGATIVE); URINE UROBILINOGEN 0.2 mg/dL (0.2 - 1)
[2020-08-06 18:26] LABS: ALANINE AMINOTRANSFERASE 31 IU/L (0-55); ALBUMIN 5.3 g/dL (3.5-5.0); ALKALINE PHOSPHATASE 69 IU/L (40-150); ANION GAP 15.5 mmol/L (8-16); BLOOD UREA NITROGEN 14 mg/dL (7-26); BUN/CREATININE RATIO 18 (6-25); CALCIUM 10.4 mg/dL (8.4-10.2); CARBON DIOXIDE 24 mmol/L (22-29); CHLORIDE 103 mmol/L (98-107); CREATINE KINASE 143 IU/L (29-168); CREATININE, SERUM 0.77 mg/dL (0.57-1.11); EST GLOMERULAR FILTRATION RATE > 60 ML/MIN (60-); GLUCOSE 129 mg/dL (74-118); POTASSIUM 3.5 mmol/L (3.5-5.1); SODIUM 139 mmol/L (136-145)
[2020-08-06 18:33] LABS: RBC,URINE 0-5 /HPF (0-5); WBC,URINE (MAN) 0-5 /HPF (0-5)
--- NOTE | 2020-08-06 19:00 | Emergency Department Note ---
History of Present Illnes History of Present Illness Chief Complaint: General Medicine Complaints History of Present Illness This is a 59 year old female Chief Complaint Comment PATIENT IN FROM HOME WITH COMPLAINTS OF FATIGUE, SHORTNESS OF BREATH, DRY COUGH, HEADACHE, AND DIZZINESS OFF AND ON SINCE THURSDAY; STATES THAT SHE STARTED LIPITOR ON THURSDAY. DENIES PAIN. Historian: Patient Arrival Mode: Car Processor Grain Required: No Onset (how long ago): day(s) (3) Location: Generalized Quality: fatigue Radiation: Reports non-radiation Severity: mild Onset quality: unable to specify Duration (how long): day(s) (3) Timing of current episode: sporadic Progression: unchanged Chronicity: new Context: Denies recent illness, Denies recent surgery Relieving factors: none Exacerbating factors: none Associated symptoms: Reports denies other symptoms Treatments prior to arrival: none Past Medical/Family History Physician Review I have reviewed the patient's past medical and family history. Any updates have been documented here. Past Medical History Recent Fever: No Clinical Suspicion of Infectio: No New/Unexplained Change in Ment: No Past Medical History: Hypertension, Diabetes, Other Mental Illness, Hyperlipedemia, Chronic Back Pain Other Medical History: SCOLIOSIS, SPINAL STENOSIS, IBS, MVAX2 Past Surgical History: Hysterectomy, T&A, Social History Smoking Cessation: Unknown if ever smoked Counseling Performed: No Alcohol Use: None Any Illegal Drug Use: No Other Last Tetanus: 7 YEARS Any Pre-Existing Lines (PICC,: No Review of Systems Review of Systems Constitutional: Reports as per HPI EENTM: Reports no symptoms Cardiovascular: Reports no symptoms Respiratory: Reports no symptoms Gastrointestinal: Reports no symptoms Genitourinary: Reports no symptoms Musculoskeletal: Reports no symptoms Integumentary: Reports no symptoms Neurological: Reports headache, Reports weakness Psychological: Reports no symptoms Endocrine: Reports no symptoms Hematological/Lymphatic: Reports no symptoms Physical Exam Related Data Allergies: Coded Allergies: Shellfish (Verified Allergy, Unknown, 08/06/20) Sulfa (Sulfonamide Antibiotics) (Verified Allergy, Unknown, 08/06/20) carisoprodol (Verified Allergy, Unknown, 08/06/20) egg (Verified Allergy, Unknown, 08/06/20) Triage Vital Signs Vital Signs Date Time Temp Pulse Resp B/P (MAP) Pulse Ox O2 Delivery O2 Flow Rate FiO2 08/06/20 17:29 98.9 68 20 191/93 99 Room Air Vital signs reviewed: Yes Physical Exam CONSTITUTIONAL Constitutional: Present well-developed, Present well-nourished HENT HENT: Present normocephalic, Present atraumatic, Present oropharynx clear/moist, Present nose normal HENT L/R: Present left ext ear normal, Present right ext ear normal EYES Eyes: Reports PERRL, Reports conjunctivae normal NECK Neck: Present ROM normal PULMONARY Pulmonary: Present effort normal, Present breath sounds normal CARDIOVASCULAR Cardiovascular: Present regular rhythm, Present heart sounds normal, Present c apillary refill normal, Present normal rate GASTROINTESTINAL Abdominal: Present soft, Present nontender, Present bowel sounds normal GENITOURINARY Genitourinary: Present exam deferred SKIN Skin: Present warm, Present dry MUSCULOSKELETAL Musculoskeletal: Present ROM normal NEUROLOGICAL Neurological: Present alert, Present oriented x 3, Present no gross motor or sensory deficits; Absent cranial nerve deficit, Absent weakness PSYCHOLOGICAL Psychological: Present mood/affect normal, Present judgement normal Results Laboratory Result Diagram: 08/06/20 1740 08/06/20 1740 Laboratory Laboratory Tests Test 08/06/20 17:40 White Blood Count 11.61 x10e3/uL (4.8-10.8) Red Blood Count 4.65 x10e6/uL (3.6-5.1) Hemoglobin 13.0 g/dL (12.0-16.0) Hematocrit 39.7 % (34.2-44.1) Mean Corpuscular Volume 85.4 fL (81-99) Mean Corpuscular Hemoglobin 28.0 pg (28-32) Mean Corpuscular Hemoglobin Concent 32.7 g/dL (31-35) Red Cell Distribution Width 12.8 % (11.7-14.4) Platelet Count 370 x10e3/uL (140-360) Neutrophils (%) (Auto) 58.8 % (38.7-80.0) Lymphocytes (%) (Auto) 29.5 % (18.0-39.1) Monocytes (%) (Auto) 8.6 % (4.4-11.3) Eosinophils (%) (Auto) 2.2 % (0.0-6.0) Basophils (%) (Auto) 0.5 % (0.0-1.0) Neutrophils # (Auto) 6.8 (2.1-6.9) Lymphocytes # (Auto) 3.4 (1.0-3.2) Monocytes # (Auto) 1.0 (0.2-0.8) Eosinophils # (Auto) 0.3 (0.0-0.4) Basophils # (Auto) 0.1 (0.0-0.1) Absolute Immature Granulocyte (auto 0.05 x10e3/uL (0-0.1) Prothrombin Time 12.6 seconds (11.9-14.5) Prothromb Time International Ratio 0.90 Activated Partial Thromboplast Time 30.5 seconds (23.8-35.5) Urine Color Yellow (YELLOW) Urine Clarity Clear (CLEAR) Urine pH 6 (5 - 7) Urine Specific [place] 1.025 (1.010-1.025) Urine Protein Negative (NEGATIVE) Urine Glucose (UA) Negative (NEGATIVE) Urine Ketones Negative (NEGATIVE) Urine Blood Negative (NEGATIVE) Urine Nitrite Negative (NEGATIVE) Urine Bilirubin Negative (NEGATIVE) Urine Urobilinogen 0.2 mg/dL (0.2 - 1) Urine Leukocyte Esterase Negative (NEGATIVE) Urine RBC 0-5 /HPF (0-5) Urine WBC 0-5 /HPF (0-5) Urine Epithelial Cells None /LPF (NONE) Urine Bacteria None /HPF (NONE) Sodium Level 139 mmol/L (136-145) Potassium Level 3.5 mmol/L (3.5-5.1) Chloride Level 103 mmol/L (98-107) Carbon Dioxide Level 24 mmol/L (22-29) Anion Gap 15.5 mmol/L (8-16) Blood Urea Nitrogen 14 mg/dL (7-26) Creatinine 0.77 mg/dL (0.57-1.11) Estimat Glomerular Filtration Rate > 60 ML/MIN (60-) BUN/Creatinine Ratio 18 (6-25) Glucose Level 129 mg/dL (74-118) Calcium Level 10.4 mg/dL (8.4-10.2) Total Bilirubin 0.4 mg/dL (0.2-1.2) Aspartate Amino Transf (AST/SGOT) 29 IU/L (5-34) Alanine Aminotransferase (ALT/SGPT) 31 IU/L (0-55) Alkaline Phosphatase 69 IU/L (40-150) Creatine Kinase 143 IU/L (29-168) Creatine Kinase MB 1.10 ng/mL (0-5.0) Troponin I 0.010 ng/mL (0-0.300) Total Protein 8.0 g/dL (6.5-8.1) Albumin 5.3 g/dL (3.5-5.0) Globulin 2.7 g/dL (2.3-3.5) Albumin/Globulin Ratio 2.0 (0.8-2.0) Lab results reviewed: Yes Imaging Imaging results reviewed: Yes Diagnostics Tests Diagnostic test(s) reviewed: Yes Procedures 12 Lead ECG Interpretation ECG Interpretation : Processor Grain: Interpreted by ED physician Date: Aug 06, 2020 Rhythm: sinus rhythm Rate: normal QRS axis: normal ST segments normal: Yes T waves normal: Yes Clinical Impression: normal ECG Assessment & Plan Medical Decision Making MDM 59 y.o F presents for multiple complaints. Initial differential includes dehydration, ACS, electrolyte abnormality, medication reaction among others. Labs, CT and exam are all unremarkable. Doubt emergent process at this time. Discused with her the results and that she should follow up with her primary doctor for further medication recommendations. She will DC her lipitor for now until she can follow up with her PCP. Reassessment Reassessment time: 19:00 Reassessment Well appearing, NAD Assessment & Plan Final Impression: (1) Fatigue Depart Disposition: HOME, SELF-CARE Last Vital Signs Date Time Temp Pulse Resp B/P (MAP) Pulse Ox O2 Delivery O2 Flow Rate FiO2 08/06/20 18:15 181/86 08/06/20 18:12 71 16 100 Room Air 08/06/20 17:29 98.9 Home Meds Reported Medications Fluticasone Propionate (FLUTICASONE PROPIONATE) 16 Gm Ida.susp, 2 INH INH DAILY 2 puffs in each nostril 10/11/18 Ondansetron Hcl* (ZOFRAN*) 4 Mg Tablet, 4 MG PO Q6H PRN for NAUSEA 10/11/18 Meloxicam (MELOXICAM) 7.5 Mg Tablet, 7.5 MG PO DAILY PRN for PAIN, #30 TAB 10/11/18 Dicyclomine Hcl (DICYCLOMINE HCL) 10 Mg Capsule, 10 MG PO TID 10/11/18 Montelukast Sodium (SINGULAIR) 10 Mg Tablet, 10 MG PO DAILY 10/11/18 Glipizide (GLIPIZIDE) 5 Mg Tablet, 10 MG PO DAILY, TAB 10/11/18 Gabapentin (GABAPENTIN) 300 Mg Capsule, 300 MG PO BID, #60 CAP 10/11/18 Tizanidine Hcl (TIZANIDINE HCL) 4 Mg Tablet, 2 MG PO BEDTIME, TAB 1-2 tablets 08/12/14 Albuterol Sulf* (PROAIR HFA INHALER*) 8.5 Gm Inh, 2 INH INH Q6 PRN for WHEEZING 2 puffs 08/12/14 Fenofibrate (TRICOR) 48 Mg Tab, 48 MG PO DAILY, #30 TAB 08/11/14 Metoprolol Tartrate (METOPROLOL TARTRATE) 50 Mg Tablet, 50 MG PO BID, TAB 08/11/14 Hydrochlorothiazide (Hydrochlorothiazide) 12.5 Mg Capsule, 25 MG PO DAILY 05/15/12 Aspirin (Asa) 81 Mg Tab, 81 MG PO DAILY 05/15/12 Metformin Hcl (Glucophage) 500 Mg Tablet, 1000 MG PO BID 05/15/12 Sertraline Hcl (Zoloft) 25 Mg Tablet, 50 MG PO DAILY 05/15/12 Losartan Potassium (Cozaar) 50 Mg Tablet, 50 MG PO BID 05/15/12 Medications in the ED Sodium Chloride 1,000 ml @ 0 mls/hr Q0M STAT IV Last administered on 08/06/20at 18:15; Admin Dose 1,000 MLS/HR; Start 08/06/20 at 17:39; Stop 08/06/20 at 17:42; Status DC Hydralazine HCl 10 mg NOW STAT IV Last administered on 08/06/20at 18:15; Admin Dose 10 MG; Start 08/06/20 at 17:39; Stop 08/06/20 at 17:44; Status DC JC KIRKLAND MD Aug 06, 2020 19:00
--- NOTE | 2020-08-06 19:12 | Diagnostic Imaging Report ---
EXAMINATION: CHEST SINGLE (PORTABLE) INDICATION: MALAISE, HEADACHE, DIZZY COMPARISON: Chest CT on 10/12/2018. Chest radiograph on 10/11/2018. FINDINGS: TUBES and LINES: None. LUNGS: Normal lung volumes. Lungs are clear. No consolidations. PLEURA: No pleural effusion or pneumothorax. HEART AND MEDIASTINUM: The cardiomediastinal silhouette is unremarkable. BONES AND SOFT TISSUES: No acute osseous lesion. Soft tissues are unremarkable. UPPER ABDOMEN: No free air under the diaphragm. IMPRESSION: No acute thoracic radiographic abnormality. Signed by: Ryley Kapadia MD on 08/06/2020 7:09 PM
--- NOTE | 2020-08-06 19:12 | Diagnostic Imaging Report ---
CT BRAIN WO HISTORY: Headache, dizziness COMPARISON: None. TECHNIQUE: Noncontrast axial scans were obtained from skull base to the vertex. Coronal and sagittal reconstructions obtained from the axial data. One or more of the following dose reduction techniques were used: Automated exposure control, adjustment of the mA and/or kV according to patient size, and/or utilization of iterative reconstruction technique. DISCUSSION: Scalp/Skull: Unremarkable. Brain sulci: Appropriate for patient's age. Ventricles: Normal in size and configuration. No hydrocephalus. Extra-axial spaces: No masses or fluid collections. Mild carotid siphon calcifications are present. Parenchyma: No abnormal densities. No mass, hemorrhage, or large vascular territory acute infarct. Dural sinuses: No abnormal densities. Sellar/Suprasellar region: Intact. Skull base: Intact. Incidental findings: None. IMPRESSION: No acute intracranial abnormalities. Signed by: Dr. Bonifacio Patricio M.D. on 08/06/2020 7:09 PM
[2020-08-06 20:15] VITALS: BP 145/77
== END 2020-08-06 20:45 | disposition home or self-care (01) ==
LOC: ER 19:00
DX: R53.83 Other fatigue (principal); I10 Essential (primary) hypertension; E11.9 Type 2 diabetes mellitus without complications; E78.5 Hyperlipidemia, unspecified
CPT/HCPCS: 36415; 70450; 71045; 80053; 81001; 82550; 82553; 84484; 85025; 85610; 85730; 87086; 93005; 99284; J0360; J7030

== ENCOUNTER 2021-03-12 16:11 | Emergency (ER) | payer OTHER ==
[~2021-03-12] VITALS: Ht 160 cm; Wt 78.9 kg
[2021-03-12 20:58] VITALS: BP 138/77
== END 2021-03-12 21:00 | disposition home or self-care (01) ==
LOC: ER 19:33
DX: R07.89 Other chest pain (principal); S20.212A Contusion of left front wall of thorax, initial encounter; W01.0XXA Fall on same level from slipping, tripping and stumbling without subsequent striking against object, initial encounter; Y93.01 Activity, walking, marching and hiking; I10 Essential (primary) hypertension; E11.9 Type 2 diabetes mellitus without complications; E78.5 Hyperlipidemia, unspecified; M41.9 Scoliosis, unspecified; M54.9 Dorsalgia, unspecified; G89.29 Other chronic pain
CPT/HCPCS: 70450; 71101; 72125; 99283

== ENCOUNTER 2021-05-17 17:55 | Emergency (ER) | payer OTHER ==
[~2021-05-17] VITALS: Ht 160 cm; Wt 78.9 kg
[2021-05-17] MEDS ORDERED: SODIUM CHLORIDE 0.9% 1000ML 1,000 ML IV STA (18:12)
[2021-05-17] MEDS ORDERED: SODIUM CHLORIDE 0.9% 1000ML 1,000 ML ONE (18:21)
[2021-05-17] MEDS ORDERED: ONDANSETRON HCL INJ 2MG/ML 2ML 2 MG/ML VIAL IV STA (19:42)
[2021-05-17] MEDS ORDERED: ONDANSETRON HCL INJ 2MG/ML 2ML 2 MG/ML VIAL ONE (19:48)
[2021-05-17 19:50] LABS: BASOPHILS # (AUTO) 0.1 (0.0-0.1); BASOPHILS % 0.5 % (0.0-1.0); EOSINOPHILS # (AUTO) 0.2 (0.0-0.4); HEMOGLOBIN 13.3 g/dL (12.0-16.0); LYMPHOCYTES % 29.1 % (18.0-39.1); MEAN CORPUSCULAR HEMOGLOBIN 28.9 pg (28-32); MEAN CORPUSCULAR HGB CONC 33.3 g/dL (31-35); MEAN CORPUSCULAR VOLUME 86.8 fL (81-99); MONOCYTES % 9.9 % (4.4-11.3); PLATELET COUNT 359 x10e3/uL (140-360); RED BLOOD COUNT 4.61 x10e6/uL (3.6-5.1); RED CELL DISTRIBUTION WIDTH 12.9 % (11.7-14.4)
[2021-05-17 20:11] LABS: ALANINE AMINOTRANSFERASE 29 IU/L (0-55); ALBUMIN 4.9 g/dL (3.5-5.0); ALBUMIN/GLOBULIN RATIO 1.6 (0.8-2.0); ALKALINE PHOSPHATASE 82 IU/L (40-150); ANION GAP 15.5 mmol/L (8-16); BLOOD UREA NITROGEN 20 mg/dL (7-26); BUN/CREATININE RATIO 26 (6-25); CALCIUM 10.4 mg/dL (8.4-10.2); CARBON DIOXIDE 26 mmol/L (22-29); CHLORIDE 99 mmol/L (98-107); CREATINE KINASE 140 IU/L (29-168); CREATININE, SERUM 0.78 mg/dL (0.57-1.11); EST GLOMERULAR FILTRATION RATE 75 ML/MIN (60-); GLUCOSE 219 mg/dL (74-118); POTASSIUM 3.5 mmol/L (3.5-5.1); SODIUM 137 mmol/L (136-145)
[2021-05-17 21:27] LABS: CLARITY,URINE SL CLOUDY (CLEAR); COLOR,URINE YELLOW (YELLOW); KETONES,URINE NEGATIVE (NEGATIVE); LEUKOCYTE ESTERASE ,URINE NEGATIVE (NEGATIVE); NITRITE,URINE NEGATIVE (NEGATIVE); PROTEIN,URINE DIPSTICK NEGATIVE (NEGATIVE); URINE UROBILINOGEN 0.2 mg/dL (0.2 - 1)
[2021-05-17 21:35] LABS: EPITHELIAL CELLS,URINE RARE /LPF; WBC,URINE (MAN) 0-5 /HPF (0-5)
== END 2021-05-17 23:22 | disposition home or self-care (01) ==
LOC: ER 18:15
DX: R53.1 Weakness (principal); T67.5XXA Heat exhaustion, unspecified, initial encounter; R42 Dizziness and giddiness; E11.65 Type 2 diabetes mellitus with hyperglycemia; I10 Essential (primary) hypertension; E78.5 Hyperlipidemia, unspecified; M41.9 Scoliosis, unspecified; M54.9 Dorsalgia, unspecified; G89.29 Other chronic pain
CPT/HCPCS: 36415; 80053; 81001; 82550; 82553; 82948; 84484; 85025; 99284; J2405; J7030

== ENCOUNTER 2023-02-21 10:33 | Emergency (ER) | payer OTHER ==
[~2023-02-21] VITALS: Ht 160 cm; Wt 77.1 kg
[2023-02-21] MEDS ORDERED: GABAPENTIN300 MG PO (11:12)
[2023-02-21] MEDS ORDERED: FLONASE ALLERG9.9 ML INH (11:12)
== END 2023-02-21 11:22 | disposition home or self-care (01) ==
LOC: FSED 11:08
DX: M54.50 Low back pain, unspecified (principal); R09.81 Nasal congestion; I10 Essential (primary) hypertension; E11.9 Type 2 diabetes mellitus without complications; E78.5 Hyperlipidemia, unspecified; M41.9 Scoliosis, unspecified; M54.9 Dorsalgia, unspecified; G89.29 Other chronic pain
CPT/HCPCS: 99282

== ENCOUNTER 2023-05-08 14:23 | Emergency (ER) | payer OTHER ==
[~2023-05-08] VITALS: Ht 160 cm; Wt 80.7 kg
[~2023-05-08 14:23] MED LIST changes: +FLONASE ALLERG9.9 ML INH
[2023-05-08] MEDS ORDERED: SODIUM CHLORIDE 0.9% 1000ML 1,000 ML ONE ×2 (15:05→15:55)
[2023-05-08] MEDS ORDERED: SODIUM CHLORIDE 0.9% 1000ML 1,000 ML IV ONE (15:30)
[2023-05-08] MEDS ORDERED: KETOROLAC TROMETHAMINE 30 MG/ML VIAL ONE (15:55)
[2023-05-08] MEDS ORDERED: KETOROLAC TROMETHAMINE 30 MG/ML VIAL IV STA (15:55)
[2023-05-08] MEDS ORDERED: SODIUM CHLORIDE 0.9% 1000ML 1,000 ML IV SCH (16:00)
[2023-05-08 16:38] VITALS: O2SAT 96
== END 2023-05-08 18:13 | disposition home or self-care (01) ==
LOC: FSED 14:30
DX: R51.9 Headache, unspecified (principal); E11.65 Type 2 diabetes mellitus with hyperglycemia; E86.0 Dehydration; X30.XXXA Exposure to excessive natural heat, initial encounter; I10 Essential (primary) hypertension; E78.5 Hyperlipidemia, unspecified; M41.9 Scoliosis, unspecified; M54.9 Dorsalgia, unspecified; G89.29 Other chronic pain; R94.31 Abnormal electrocardiogram [ECG] [EKG]
CPT/HCPCS: 70450; 80053; 81003; 82553; 83518; 84484; 85025; 93005; 96374; 99284; J1885; J7030

== ENCOUNTER 2023-09-05 11:34 | Emergency (ER) | payer OTHER ==
[~2023-09-05] VITALS: Ht 160 cm; Wt 77.1 kg
[~2023-09-05 11:34] MED LIST changes: +BASAGLAR K100 UNIT/1 SQ; +DICYCLOMINE HCL20 MG PO; +GLIPIZIDE-METF1 EAC2; +LORATADINE10 MG PO; +MULTIVITAMINS1 EAC6 PO; +NEURONTIN100 MG PO; +ONDANSETRON ODT4 MG PO; +VITAMIN B122500 MCG PO; +XIFAXAN550 MG PO; +ZETIA10 MG PO; +ZZZQUIL50 MG/30 M
[2023-09-05] MEDS ORDERED: INSULIN REGULAR, HUMAN 100 UNIT/1 ML IV ONE (13:00)
[2023-09-05] MEDS ORDERED: SODIUM CHLORIDE 0.9% 1000ML 1,000 ML IV SCH (13:00)
[2023-09-05] MEDS ORDERED: MECLIZINE HCL 12.5 MG TAB ONE (13:05)
[2023-09-05] MEDS ORDERED: INSULIN REGULAR, HUMAN 100 UNIT/1 ML ONE (13:05)
[2023-09-05] MEDS ORDERED: MECLIZINE HCL 12.5 MG TAB PO ONE (14:00)
[2023-09-05 15:00] VITALS: O2SAT 99
[2023-09-05] MEDS ORDERED: MECLIZINE HCL25 MG PO (15:00)
== END 2023-09-05 15:12 | disposition home or self-care (01) ==
LOC: FSED 11:38
DX: R42 Dizziness and giddiness (principal); E11.65 Type 2 diabetes mellitus with hyperglycemia; R51.9 Headache, unspecified; I10 Essential (primary) hypertension; E78.5 Hyperlipidemia, unspecified; K21.9 Gastro-esophageal reflux disease without esophagitis; M54.9 Dorsalgia, unspecified; G89.29 Other chronic pain; R94.31 Abnormal electrocardiogram [ECG] [EKG]
CPT/HCPCS: 36415; 70450; 80053; 81003; 82553; 82948; 84484; 85025; 99284; J7030; J8597; 93005